=== PATIENT | male | born 1955 | race Caucasian/White ===

== ENCOUNTER 2017-07-14 12:04 | Emergency (ER) | payer MEDICARE, MEDICAID ==
[~2017-07-14] VITALS: Ht 170.2 cm; Wt 70.0 kg
[2017-07-14 12:12] VITALS: BP 146/112
[2017-07-14] MEDS ORDERED: ipratropium/albuterol 3ml nebule NEB ONE (14:00)
[2017-07-14] MEDS ORDERED: diphenhydrAMINE 25mg capsule PO ONE (14:00)
[2017-07-14] MEDS ORDERED: ALBU18HF2 INH (14:41)
== END 2017-07-14 14:56 | disposition home or self-care (01) ==
LOC: ER 12:04
DX: J98.01 Acute bronchospasm (principal); I10 Essential (primary) hypertension; Z88.5 Allergy status to narcotic agent
CPT/HCPCS: 71046; 94640; 94760; 99284; Q0163

== ENCOUNTER 2023-01-02 10:20 | Outpatient (CLI) | payer MEDICARE, MEDICAID ==
[~2023-01-02 10:20] MED LIST: ALBU18HF2 INH
== END 2023-01-02 23:59 | disposition home or self-care (01) ==
LOC: RAD 10:20
PROVIDERS: ATTEND Nurse Practitioner Family
DX: K40.00 Bilateral inguinal hernia, with obstruction, without gangrene, not specified as recurrent (principal)
CPT/HCPCS: 76881